=== PATIENT | female | born 2000 | race Two or more races ===

== ENCOUNTER 2020-12-06 17:53 | Emergency (ER) | payer OTHER ==
[~2020-12-06] VITALS: Ht 154.9 cm; Wt 63.0 kg
[2020-12-06] MEDS ORDERED: PRENA1 TRUE CO1 EACH PO (18:11)
== END 2020-12-06 21:14 | disposition home or self-care (01) ==
LOC: ER 17:53
DX: O21.0 Mild hyperemesis gravidarum (principal); Z3A.08 8 weeks gestation of pregnancy

== ENCOUNTER 2021-02-25 23:21 | Emergency (ER) | payer OTHER ==
[~2021-02-25] VITALS: Ht 154.9 cm; Wt 61.2 kg
[~2021-02-25 23:21] MED LIST: PRENA1 TRUE CO1 EACH PO
[2021-02-26] MEDS ORDERED: ZOFRAN4 MG PO (04:21)
[2021-02-26] MEDS ORDERED: PEPCID AC20 MG PO (04:21)
== END 2021-02-26 04:47 | disposition home or self-care (01) ==
LOC: ER 23:21
DX: R10.9 Unspecified abdominal pain (principal); R11.2 Nausea with vomiting, unspecified; O26.892 Other specified pregnancy related conditions, second trimester; Z3A.21 21 weeks gestation of pregnancy

== ENCOUNTER 2021-04-08 12:52 | Outpatient (CLI) | payer OTHER ==
[~2021-04-08 12:52] MED LIST changes: +PEPCID AC20 MG PO; +ZOFRAN4 MG PO
== END 2021-04-09 17:34 | disposition home or self-care (01) ==
LOC: OBS/DEL 12:52
PROVIDERS: ATTEND Obstetrics & Gynecology
DX: O23.592 Infection of other part of genital tract in pregnancy, second trimester (principal); Z3A.27 27 weeks gestation of pregnancy